=== PATIENT | female | born 1955 | race Caucasian/White ===

== ENCOUNTER 2018-01-28 12:17 | Outpatient (CLI) | payer OTHER ==
[~2018-01-28 12:17] MED LIST: AMBIEN10 MG PO; CLONAZEPAM2 MG PO; ELAVIL PO; NABUMETONE500 MG PO; NEURONTIN300 MG PO; PERCOCET 5/3251 TAB PO; ZOCOR20 MG PO
== END 2018-01-28 12:23 | disposition home or self-care (01) ==
LOC: RAD 12:17
DX: R07.89 Other chest pain (principal)